=== PATIENT | female | born 1950 | race African-American/Black ===

== ENCOUNTER → 2017-05-07 | Day surgery (SDC) | payer MEDICARE ==
[~2017-05-07] MED LIST: DEXAMETHASONE SOD PHOS 4 MG/ML VIAL; HYDROmorphone 2 MG/ML VIAL; LIDOCAINE 1% PF 2 ML VIAL. ID; MIDAZOLAM HCL/PF 2 MG/2 ML VIAL.; MORPHINE SULFATE 2 MG/ML DISP.SYRIN.; ONDANSETRON PF 4 MG/2 ML VIAL. IV; POVIDONE-IODINE 10% TOPICAL OINTMENT 28GM TUBE. TP; PROCHLORPERAZINE 10 MG/2 ML VIAL. IV; PROPOFOL 20 ML IV; fentaNYL PF VIAL 100 MCG/2 ML VIAL; fentaNYL PF VIAL 100 MCG/2 ML VIAL IV; methylPREDNISolone ACETATE 40 MG/ML VIAL.
[2017-05-07] MEDS: IV RINGERS,LACTATED 1000ML 1,000 ML IV (07:00)
[2017-05-07] MEDS: LIDOCAINE 1% PF 30 ML VIAL. (11:53)
[2017-05-07] MEDS: BUPIVACAINE MPF 0.5% 30 ML VIAL. (11:53)
[2017-05-07] MEDS: fentaNYL PF VIAL 100 MCG/2 ML VIAL IV ×4 (14:39→15:04)
[2017-05-07] MEDS: oxyCODONE/APAP 10/325 1 TAB TABLET PO (14:53)
[2017-05-07] MEDS: HYDROmorphone 2 MG/ML VIAL IV ×2 (15:17→15:28)
[2017-05-07] MEDS: MORPHINE SULFATE 2 MG/ML DISP.SYRIN. IV (15:39)
== END | disposition home or self-care (01) ==
LOC: SURG 10:06
DX: M20.12 Hallux valgus (acquired), left foot (principal); I10 Essential (primary) hypertension; Z87.39 Personal history of other diseases of the musculoskeletal system and connective tissue; M19.90 Unspecified osteoarthritis, unspecified site; F41.9 Anxiety disorder, unspecified; F32.9 Major depressive disorder, single episode, unspecified; Z88.6 Allergy status to analgesic agent; Z90.710 Acquired absence of both cervix and uterus; Z88.2 Allergy status to sulfonamides
CPT/HCPCS: 28292; 88304; 88311; J0690; J1030; J1100; J1170; J2250; J2270; J2704; J3010; J3490